=== PATIENT | male | born 1970 | race American Indian/Alaskan Native ===

== ENCOUNTER 2017-07-25 20:18 | Emergency (ER) | payer OTHER ==
[2017-07-25] MEDS ORDERED: Ondansetron 4 MG/2 ML SDV IVPUSH ONE (20:34)
[2017-07-25] MEDS ORDERED: Sodium Chloride 0.9% 10 ML Syringe FLUSH PRN (20:34)
[2017-07-25] MEDS ORDERED: HYDROmorphone 2 MG/ML SDV IVPUSH ONE ×2 (20:35→21:25)
[2017-07-25] MEDS ORDERED: HYDROmorphone 2 MG/ML SDV IM ONE (21:14)
--- NOTE | 2017-07-25 22:05 | EDM.PDOC ---
ED HPI GENERAL MEDICAL PROBLEM - General Chief Complaint: Lower Extremity Injury/Pain Time Seen by Provider: 07/25/17 20:25 Source of Information: Reports: Patient, Family History Limitations: Reports: No Limitations - History of Present Illness INITIAL COMMENTS - FREE TEXT/NARRATIVE: Patient is a 47 year old man who underwent left foot surgery today at [facility] by Dr. Juancho Hernández to straighten out toes affected by his Psoriatic Arthritis. His wrappings are tight and he has 10/10 pain in the toes where the rods are placed. No fever or chills and no other problems. There is some bleeding but that is normal per his orthopedist and his nurses. 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, Other Medication(s) (Tramadol and Vicodin) left toes Pain Score (Numeric/FACES): 10 - Related Data Allergies Allergy/AdvReac Type Severity Reaction Status Date / Time No Known Allergies Allergy Verified 07/25/17 20:36 Home Meds: Home Meds metFORMIN [Glucophage] 1,000 mg PO BID 07/25/17 [History] Past Medical History Cardiovascular History: Reports: Hypertension Musculoskeletal History: Reports: Arthritis Other Musculoskeletal History: Psoriathic Arthritis Endocrine/Metabolic History: Reports: Diabetes, Type II Social & Family History - Family History Family Medical History: Noncontributory - Tobacco Use Smoking Status *Q: Current Every Day Smoker Years of Tobacco use: 5 Packs/Tins Daily: 1 - Caffeine Use Caffeine Use: Reports: Coffee - Recreational Drug Use Recreational Drug Use: No Review of Systems - Review of Systems Review Of Systems: ROS reveals no pertinent complaints other than HPI. ED EXAM, GENERAL - Physical Exam Exam: See Below Exam Limited By: No Limitations General Appearance: Alert, WD/WN, No Apparent Distress Eye Exam: Bilateral Eye: EOMI, Normal Fundi, Normal Inspection, PERRL Ears: Normal External Exam, Normal Canal, Hearing Grossly Normal, Normal TMs Ear Exam: Bilateral Ear: Auricle Normal, Canal Normal, TM normal Nose: Normal Inspection, Normal Mucosa, No Blood Throat/Mouth: Normal Inspection, Normal Lips, Normal Teeth, Normal Gums, Normal Oropharynx, Normal Voice, No Airway Compromise Head: Atraumatic, Normocephalic Neck: Normal Inspection, Supple, Non-Tender, Full Range of Motion Respiratory/Chest: No Respiratory Distress, Lungs Clear, Normal Breath Sounds, No Accessory Muscle Use, Chest Non-Tender Cardiovascular: Normal Peripheral Pulses, Regular Rate, Rhythm, No Edema, No Gallop, No JVD, No Murmur, No Rub Peripheral Pulses: 4+: Posterior Tibial (L), Posterior Tibial (R), Dorsalis Pedis (L), Dorsalis Pedis (R) GI/Abdominal: Normal Bowel Sounds, Soft, Non-Tender, No Organomegaly, No Distention, No Abnormal Bruit, No Mass Back Exam: Normal Inspection, Full Range of Motion, NT Extremities: Normal Inspection, Normal Range of Motion, Non-Tender, Normal Capillary Refill, No Pedal Edema Neurological: Alert Psychiatric: Normal Affect, Normal Mood Course - Vital Signs Text/Narrative:: Uneventful ED course. I talked to Dr. Hernández's inside sales consultant colleague, Dr. Linda who told me to loosen the dressing on the foot and to rewrap it looser , which I did. He was given 2 mg total of IV Dilaudid and 4 mg of IV Zofran and he appeared to be a little more comfortable. He will follow up tomorrow with Dr. Hernández or return to where his surgery was done if it gets worse before then. Last Recorded V/S: Last Vital Signs Temp 36.4 C 07/25/17 20:20 Pulse 100 07/25/17 20:20 Resp 20 07/25/17 20:20 BP 122/80 07/25/17 20:20 Pulse Ox 97 07/25/17 20:20 - Orders/Labs/Meds Orders: Active Orders 24 hr Category Date Time Status Sodium Chloride 0.9% [Saline Flush] Med 07/25/17 20:34 Active 10 ml FLUSH ASDIRECTED PRN Saline Lock Insert [OM.PC] Routine Oth 07/25/17 20:34 Ordered Medication Orders Sodium Chloride (Saline Flush) 10 ml FLUSH ASDIRECTED PRN PRN Reason: Keep Vein Open Last Admin: 07/25/17 20:39 Dose: 10 ml Meds: Medications Generic Name Dose Route Start Last Admin Trade Name Ye PRN Reason Stop Dose Admin Sodium Chloride 10 ml 07/25/17 20:34 07/25/17 20:39 Saline Flush FLUSH 10 ml ASDIRECTED PRN Administration Keep Vein Open Discontinued Medications Generic Name Dose Route Start Last Admin Trade Name Ye PRN Reason Stop Dose Admin Hydromorphone HCl 1 mg 07/25/17 20:35 07/25/17 20:39 Dilaudid IVPUSH 07/25/17 20:36 1 mg ONETIME ONE Administration Hydromorphone HCl 1 mg 07/25/17 21:14 07/25/17 21:27 Dilaudid IM 07/25/17 21:15 Not Given ONETIME ONE Hydromorphone HCl 1 mg 07/25/17 21:25 07/25/17 21:27 Dilaudid IVPUSH 07/25/17 21:26 1 mg ONETIME ONE Administration Ondansetron HCl 4 mg 07/25/17 20:34 07/25/17 20:41 Zofran IVPUSH 07/25/17 20:35 4 mg ONETIME ONE Administration Departure - Departure Time of Disposition: 22:10 Disposition: Home, Self-Care 01 Condition: Good Clinical Impression: Postoperative pain of extremity - Discharge Information Referrals: PCP,None [Primary Care Provider] - - My Orders Last 24 Hours: My Active Orders 07/25/17 20:34 Sodium Chloride 0.9% [Saline Flush] 10 ml FLUSH ASDIRECTED PRN Saline Lock Insert [OM.PC] Routine - Assessment/Plan Last 24 Hours: My Active Orders 07/25/17 20:34 Sodium Chloride 0.9% [Saline Flush] 10 ml FLUSH ASDIRECTED PRN Saline Lock Insert [OM.PC] Routine
== END 2017-07-25 22:20 | disposition home or self-care (01) ==
LOC: FB.ED 20:18
DX: G89.18 Other acute postprocedural pain (principal); M79.675 Pain in left toe(s); I10 Essential (primary) hypertension; E11.9 Type 2 diabetes mellitus without complications; F17.210 Nicotine dependence, cigarettes, uncomplicated; Z79.84 Long term (current) use of oral hypoglycemic drugs
CPT/HCPCS: 96374; 96375; 96376; 99283; J1170; J2405; J7050